=== PATIENT | male | born 1955 | race Caucasian/White ===

== ENCOUNTER 2021-02-16 04:38 | Emergency (ER) | payer OTHER ==
[~2021-02-16] VITALS: Ht 198.1 cm; Wt 95.3 kg
[~2021-02-16 04:38] MED LIST: GLUCOPHAGE500 MG; GLUCOSAMINE CH1 EAC7; LANTUSSOLASTAR; LEXAPRO20 MG; MULTIVITAMINS; SIMVASTATIN10 MG
[2021-02-16] MEDS ORDERED: CELEXA 20 MG TA20 MG PO (04:50)
[2021-02-16] MEDS ORDERED: LORAZEPAM 0.50.5 MG PO (04:51)
[2021-02-16] MEDS ORDERED: LOVASTATIN 20 M20 MG PO (04:51)
[2021-02-16] MEDS ORDERED: PREGABALIN100 MG PO (04:52)
[2021-02-16] MEDS ORDERED: NORCO 10-325 T1 EACH PO (05:26)
[2021-02-16 05:52] VITALS: BP 128/64
== END 2021-02-16 05:53 | disposition home or self-care (01) ==
LOC: ER 04:38
DX: S42.292A Other displaced fracture of upper end of left humerus, initial encounter for closed fracture (principal); M19.90 Unspecified osteoarthritis, unspecified site; Z79.899 Other long term (current) drug therapy; Z91.09 Other allergy status, other than to drugs and biological substances; W19.XXXA Unspecified fall, initial encounter; Y93.89 Activity, other specified; Y92.89 Other specified places as the place of occurrence of the external cause; Y99.8 Other external cause status